=== PATIENT | female | born 1975 | race Caucasian/White ===

== ENCOUNTER 2022-08-11 09:10 | Outpatient (CLI) | payer OTHER, SELFPAY ==
--- NOTE | ~2022-08-11 | US_ITS ---
EXAMINATION: US_VDOPREFBI_US DATE: 08/11/2022 10:29 INDICATION: Localized edema. TECHNIQUE: Grayscale ultrasound images without and with compression and Doppler ultrasound images of the bilateral lower extremity veins were obtained. COMPARISON: Ultrasound 07/14/2017 FINDINGS: The visualized portions of right common femoral vein, profunda (deep) femoral vein, femoral vein, pop liteal vein, peroneal veins, posterior tibial veins, and greater saphenous vein outflow are patent. R ight greater saphenous vein measures 7 mm in the upper thigh, 2 mm in the lower thigh, and 2 mm in th e calf. Reflux in right greater saphenous vein measures 1.0 seconds in the upper thigh, 5 seconds in the lower thigh, and 5 seconds in the calf. Right small saphenous vein measures 5 mm in the upper lurdes f and 2 mm in the lower calf without reflux. The visualized portions of left common femoral vein, profunda femoral vein, femoral vein, popliteal v ein, peroneal veins, posterior tibial veins, and greater saphenous vein outflow are patent. Left grea ter saphenous vein measures 3 mm the upper thigh without reflux. Left greater saphenous vein measures 2 mm in the lower thigh with 1.4 seconds reflux and 2 mm in the calf. Left small saphenous vein caitie ures 2 mm in the upper calf and lower calf without reflux. IMPRESSION: 1. No deep venous thrombosis. 2. Reflux in the bilateral greater saphenous veins. Reviewed, dictated and finalized at location A.
== END 2022-08-11 09:11 | disposition home or self-care (01) ==
PROVIDERS: PCP Family Medicine; Visit Provider Physician Assistant
DX: R60.0 Localized edema (principal); R09.89 Other specified symptoms and signs involving the circulatory and respiratory systems
CPT/HCPCS: 93970

== ENCOUNTER 2023-09-29 10:31 | Emergency (ER) | payer OTHER, SELFPAY ==
--- NOTE | ~2023-09-29 | US_ITS ---
LEFT LOWER EXTREMITY VENOUS ULTRASOUND Ordering provider: Shawn Yusuf APRN History: . left leg pain/swelling, hx of DVT . Comparison: July 15, 19992017 FINDINGS: --COMMON FEMORAL: Patent and free of thrombus. Normal compressibility, phasic flow and augmentation. --PROXIMAL SUPERFICIAL FEMORAL: Patent and free of thrombus. Normal compressibility, phasic flow and augmentation. --DISTAL SUPERFICIAL FEMORAL: Patent and free of thrombus. Normal compressibility, phasic flow and au gmentation. --POPLITEAL: Patent and free of thrombus. Normal compressibility, phasic flow and augmentation. --POSTERIOR TIBIAL: Patent and free of thrombus. Normal compressibility, phasic flow and augmentation . IMPRESSION: Negative left lower extremity venous US. No deep vein thrombosis. Reviewed, dictated and finalized at location A.
[2023-09-29 10:50] VITALS: BP 152/96; PULSE 67; RESP 17; TEMP 36.6; O2SAT 100
--- NOTE | 2023-09-29 10:55 | ED.LOWEXIN ---
HPI - Extremity Injury (Lower) General Chief Complaint: Extremity Problem,Nontraumatic Stated Complaint: DVT? Time Seen by Provider: 09/29/23 10:53 History of Present Illness HPI Narrative: 48-year-old female with a remote history of DVTs presents to the emergency room for evaluation of left calf pain and swelling. Patient states that she was recently on a 5 hour flight prior to the onset of symptoms. Patient states pain is worse with ambulation, has noticed swelling in her foot. Denies any shortness of breath or difficulty breathing. Related Data Home Medications Medication Instructions Recorded Confirmed omeprazole 20 mg tablet,delayed 20 mg PO DAILY 05/04/19 09/07/23 release cetirizine 10 mg tablet 10 mg PO DAILY 03/01/20 09/07/23 cyanocobalamin (vitamin B-12) 1,000 mcg PO DAILY 09/01/22 09/07/23 1,000 mcg capsule omega-3 fatty acids 300 mg capsule 1,500 mg PO DAILY 09/01/22 09/07/23 ferrous sulfate 325 mg (65 mg 325 mg PO DAILY 11/26/22 09/07/23 iron) tablet (Feosol) Allergies Allergy/AdvReac Type Severity Reaction Status Date / Time tetracycline AdvReac Unknown HEARTBURN Verified 09/07/23 09:15 Review of Systems Review of Systems: ROS unremarkable except for noted in HPI PMFSH Past Medical History Medical History Anemia Anxiety Depression DVT (deep venous thrombosis) Encounter for IUD insertion 10/10/10 Mirena insertion Encounter for IUD removal 12/30/10 Mirena removal GERD (gastroesophageal reflux disease) HH (hiatus hernia) High cholesterol Hives Idiopathic urticaria Irritable bowel syndrome with diarrhea Mood swings Normal colonoscopy Screening mammogram, encounter for Surgical History Surgical History History of abdominoplasty (~2012) History of bilateral salpingectomy (09/05/20) hscope endometrial ablation/b lscope salping History of breast augmentation (~2012) History of 03/05/06 primary c/s--macrosomia 01/18/08 rpt c/s History of dilation and curettage (08/15/20) hscope d&c--benign History of endometrial ablation (09/05/20) hscope endometrial ablation/b lscope salping Family History Family History Father Family history of lymphoma Mother Family history of coronary artery disease Social History Social History Social History: Smoking status: Former smoker Tobacco type: cigarettes Second hand tobacco smoke exposure: No Smoking end date: 04/12/98 Alcohol intake: current Drinks per week: 4 Substance use: never Substance use type: does not use Do You Feel Safe in your Home?: Yes Lack of Transportation: No Lack of Food: Never True Current Housing: I Have Housing Concerned About Future Housing: No Difficulty Paying Gas/Electric Bills: No Difficulty Paying for Meds: No Currently Unemployed: No Education: Decline to Answer Difficulty w/ Childcare or Family Care: No Living arrangements: with family Additional living arrangements comments: Occupation/Education: occupation Additional occupation/education comments: safety technician Gender identity (if verbalized by the patient): Female Sexual Orientation (if Verbalized by the Patient): Straight or Heterosexual Exam Narrative: GENERAL: Well-appearing, well-nourished, no physical limitations, and in no acute distress. HEAD: Normocephalic, atraumatic. EYES: Conjunctivae normal, PERRLA and EOMI. CHEST: Clear to auscultation. No respiratory distress. No wheezes rales or rhonchi. HEART: Regular rate and rhythm. No murmur heard. Normal peripheral pulses. EXTREMITIES: Normal range of motion. +TTP to left calf, + HOmans sign SKIN: Warm, dry, no rash. No noted wounds NEURO: No focal deficits. Alert and oriented x3. MAEW. CN's I
[2023-09-29 11:17] LABS: Basophils Absolute Auto 0.1 K/mm3 (0.0-0.1); Basophils Percent Auto 0.7 % (0.2-1.2); Eosinophils Absolute Auto 0.2 K/mm3 (0-0.3); Eosinophils Percent Auto 2.9 % (0-4.4); Hematocrit 42.1 % (37.0-47.0); Immature Granulocyte Absolute 0.02 K/mm3 (0.00-0.031); Immature Granulocyte Percent A 0.3 % (0-0.5); Mean Corpuscular HGB Conc 33.3 g/dl (32-36); Mean Corpuscular Volume 99.3 fl (80-100); Mean Platelet Volume 10.4 fl (7.4-10.4); Monocytes Absolute Auto 0.4 K/mm3 (0.1-0.6); Monocytes Percent Auto 5.9 % (2.6-8.5); Neutrophils Absolute Auto 4.9 K/mm3 (1.3-6.7); Neutrophils Percent Auto 71.2 % (45.5-73.1); Platelet Count Result 184 k/mm3 (150-375); Red Blood Count 4.24 M/mm3 (4.2-5.4); Red Cell Distribution Width 11.9 % (11.5-14.5); White Blood Count 6.8 K/mm3 (4.5-10.0)
[2023-09-29 11:27] LABS: Alanine Aminotransferase 25 U/L (6-35); Albumin Level 4.6 g/dL (3.5-5.1); Alkaline Phosphatase 49 U/L (38-126); Anion Gap 6 mmol/L (4-12); Aspartate Amino Transferase 196 U/L (14-36); Bilirubin,Total 0.7 mg/dL (0.2-1.3); Blood Urea Nitrogen 9 mg/dL (7-17); Carbon Dioxide 26 mmol/L (22-30); Chloride 106 mmol/L (98-107); Estimated CRCL calculation 92 ml/min; Estimated Glomerular Filt Rate > 60; Glucose 88 mg/dL (65-110); Potassium 4.4 mmol/L (3.4-5.0); Sodium 138 mmol/L (137-145)
[2023-09-29 11:31] LABS: INR 0.9; Prothrombin Time 12.9 Seconds (11.1-14.7)
[2023-09-29 11:33] LABS: Partial Thromboplastin Time 27.4 Seconds (22.3-36.8)
[2023-09-29 11:45] LABS: D Dimer 0.33 ug/mL (<0.48)
[2023-09-29 12:27] VITALS: BP 142/81; PULSE 75; RESP 20; O2SAT 97
== END 2023-09-29 12:28 | disposition home or self-care (01) ==
PROVIDERS: Emergency Provider Nurse Practitioner Family; PCP Family Medicine
DX: M79.662 Pain in left lower leg (principal); E78.00 Pure hypercholesterolemia, unspecified; K21.9 Gastro-esophageal reflux disease without esophagitis; K44.9 Diaphragmatic hernia without obstruction or gangrene; K58.0 Irritable bowel syndrome with diarrhea; Z86.718 Personal history of other venous thrombosis and embolism; Z86.2 Personal history of diseases of the blood and blood-forming organs and certain disorders involving the immune mechanism; Z87.891 Personal history of nicotine dependence; Z90.79 Acquired absence of other genital organ(s); Z79.899 Other long term (current) drug therapy
CPT/HCPCS: 36415; 80053; 85025; 85380; 85610; 85730; 93971; 99284

== ENCOUNTER 2024-05-22 12:19 | Outpatient (CLI) | payer BC, SELFPAY ==
--- OUTSIDE RECORDS SUMMARY | 2024-05-22 12:37 | XMS_ITS | Referral Summary ---
Author Organization [facility] Address [address] [place] [address] [place] [address] Care Team Providers Care Tree Inspector Name Role Phone Leisa Bowling MD Primary Care Provider Encounters Date Type Department Care Team Description 05/08/2024 12:00 PM MONITOR TECH Office Visit [facility] [address] [place] [address] [address] [place] [address] Jyoti Carr Encounter for cosmetic procedure (Primary Dx) 04/18/2024 Orders Only [facility] [address] [place] [address] Unknown, Notinfile 04/07/2024 1:00 PM MONITOR TECH Office Visit [facility] [address] [place] [address] [address] [place] [address] Jyoti Carr Encounter for cosmetic procedure (Primary Dx) 03/13/2024 11:30 AM MONITOR TECH Lab [facility] [address] [address] 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 10:40 AM MONITOR TECH Office Visit [facility] [address] [place] [phone] Marquise Ogden MD PhD Hypergammaglobulinemia (Primary Dx); Chronic idiopathic urticaria 03/08/2024 Orders Only [facility] [address] [facility] [address] [place] [address] Marquise Ogden MD PhD Chronic idiopathic urticaria (Primary Dx) 03/07/2024 11:45 AM MONITOR TECH Office Visit [facility] [address] [facility] [address] [place] [address] Jyoti Carr Encounter for cosmetic procedure (Primary Dx) from Last 3 Months Allergies Active Allergy Reactions Criticality Noted Date Comments Tetracyclines Medications omeprazole 20 mg tablet,delayed release (DR/EC) Take 1 tablet (20 mg total) by mouth daily Active ferrous gluconate 324 mg (37.5 mg of elemental iron) tablet 07/23/2017 Active cetirizine (ZyrTEC) 10 mg tablet Take 1 tablet (10 mg total) by mouth as needed Active Viberzi 100 mg tablet Take 1 tablet (100 mg total) by mouth 2 (two) times a day 03/09/2023 Active montelukast (SINGULAIR) 10 mg tabletIndication s:Chronic idiopathic urticaria TAKE 1 TABLET(10 MG) BY MOUTH DAILY 30 tablet 04/10/2024 Active Active Problems Problem Noted Date Diagnosed Date Facial aging 01/12/2018 Sensorineural hearing loss (SNHL) of both ears 0 12/05/2014 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 Patellofemoral pain syndrome 05/20/2011 Social History Tobacco Use Types Packs/Day Years Used Date Smoking Tobacco: Never Smokeless Tobacco: Never Tobacco Cessation:Counseling Given: Not Answered Comments Unknown Sex and Gender Information Value Date Recorded Sex Assigned at Not on file Legal Sex Female 3:11 AM MONITOR TECH Gender Identity Not on file Sexual Orientation Not on file Last Filed Vital Signs Vital Sign Reading Time Taken Comments Blood Pressure 139/82 03/13/2024 10:41 AM MONITOR TECH Pulse 66 03/13/2024 10:41 AM MONITOR TECH Temperature 36.3 C (97.3 F) 03/13/2024 10:41 AM MONITOR TECH Respiratory Rate 19 03/13/2024 10:41 AM MONITOR TECH Oxygen Saturation 99% 03/13/2024 10:41 AM MONITOR TECH Inhaled Oxygen Concentration - - Weight 85.7 kg (189 lb) 03/13/2024 10:41 AM MONITOR TECH Height 162.6 cm (5' 4 ) 03/13/2024 10:41 AM MONITOR TECH Body Mass Index 32.44 03/13/2024 10:41 AM MONITOR TECH Plan of Treatment Not on file Procedures Procedure Name Priority Date/Time Associated Diagnosis Comments SURGICAL PATHOLOGY Routine 04/18/2024 12 :00 AM MONITOR TECH IGA Routine 03/13/2024 11:32 AM MONITOR TECH Hypergammaglobuline serge IGM Routine 03/13/2024 11:32 AM MONITOR TECH Hypergammaglobuline serge IGG Routine 03/13/2024 11:32 AM MONITOR TECH Hypergammaglobuline serge SCREENING MAMMOGRAM Routine 10/31/2012 2 :12 PM CDT from Last 3 Months or Most Recently Relevant to Health Maintenance Results * Surgical pathology (04/18/2024 12:00 AM MONITOR TECH) Skin, shave biopsy 04/18/2024 04/21/2024 7:43 AM MONITOR TECH Narrative 04/24/2024 1:50 PM MONITOR TECH EPIC results best viewed via link to PDF [facility] [address] [place] [address], [address], [place] [address] [email or web address] Note to Patients: This report may contain a detailed description of human tissue sent by a health care provider to the laboratory for pathologic evaluation. The content of this report is essential for diagnosis and may provide important critical findings. This information may be unfamiliar to patients to review without a medical professional present. It is advised that the patient review this report in the presence of a health care provider who can answer questions and explain the details. FINAL REPORT Patient Information: PATIENT NAME: SHAUNA STEWART SEX: F : 1975 (Age: 48) Specimen Information: COLLECTED: 04/18/2024 RECEIVED: 04/21/2024 REPORTED: 04/24/2024 Submitting Physician Information: Ana Maria Au, [facility], [address] [place] [address], DERMATOPATHOLOGY REPORT RESULTS DIAGNOSIS: A. SKIN, RIGHT LATERAL ZYGOMA, SHAVE BIOPSY: SEBORRHEIC KERATOSIS, INFLAMED B. SKIN, LEFT CENTRAL ISLAM, SHAVE BIOPSY: SEBORRHEIC KERATOSIS exr/lac By this signature, I attest that the above diagnosis is based upon my personal examination of the slides(and/or other material indicated in the diagnosis). Shana Peña M.D. Report Electronically Reviewed and Signed Out By Shana Peña M.D. 04/24/2024 13:50:04 CLINICAL INFORMATION A-B. NEOPLASM OF UNCERTAIN BEHAVIOR VS. SKI VS. DERMAL NEVUS SPECIMEN DATA MICROSCOPIC DESCRIPTION: A. There is hyperkeratosis, papillated and reticulated epithelial hyperplasia, horn pseudocysts and an inflammatory cell infiltrate. (L82.0) B. There is hyperkeratosis, papillated and reticulated epithelial hyperplasia and horn pseudocysts. (L82.1) GROSS DESCRIPTION: A. Received in a formalin-containing bottle is a superficial fragment of pale subramanian, mildly bosselated and hair-bearing skin measuring 0.6 by 0.5 by 0.1 cm. The surgical margin is inked blue. The specimen is sectioned into 2 pieces and submitted entirely in a single cassette. Due to shrinkage, measurements may be different than those at time of procedure. B. Received in a formalin-containing bottle is a superficial fragment of pale subramanian, mildly domed and semi-translucent skin measuring 0.7 by 0.6 by 0.1 cm. The surgical margin is inked blue. The specimen is sectioned into 2 pieces and submitted entirely in a single cassette. Due to shrinkage, measurements may be different than those at time of procedure. exr/anc ICD-9 ZSD.1411 Clerical Data A; 02256 B; 66627 The characteristics of special, immunohistochemical, and immunofluorescence stains and in-situ hybridization tests performed by the [facility] were deemed acceptable in ongoing personnel quality assurance auditor measures and in compliance with regulations drawn from the Clinical Laboratory Improvement Act rm5685 (CLIA '88). Control reactions for all stains performed were deemed adequate and appropriate by a pathologist prior to evaluation of patient tissue. Some diagnoses were rendered with the assistance of laboratory-developed tests utilizing analyte-specific reagents; the performance characteristic of these tests were determined by [facility] and are not cleared or approved by the [place] Food an Drug administration. Laboratory developed test may only be performed in a facility that is certified by the [facility] as a high-complexity laboratory under CLIA '88. These tests are used for clinical purposes and are not investigational. Notinfile Unknown LAB PATHOLOGY ORDERABLES Final Result * IgA (03/13/2024 11:32 AM MONITOR TECH) Immunoglobulin A 179 70 - 400 mg/dL Blood 03/13/2024 11:3 2 AM MONITOR TECH 03/13/2024 2:55 PM MONITOR TECH Narrative [facility] 03/13/2024 3:37 PM MONITOR TECH Send to [facility] lab for more sensitive test (lower limit of detection) Marquise Ni MD PhD LAB BLOOD ORDERABLE S Final Result [facility] [place] [address] * (ABNORMAL) IgM (03/13/2024 11:32 AM MONITOR TECH) Immunoglobulin M 313(H) 40 - 230 mg/dL Blood 03/13/2024 11:3 2 AM MONITOR TECH 03/13/2024 2:55 PM MONITOR TECH Marquise Ni MD PhD LAB BLOOD ORDERABLE S Final Result [facility] Department [place] [address] * IgG (03/13/2024 11:32 AM MONITOR TECH) Immunoglobulin G 1,078 700 - 1,600 mg/dL Blood 03/13/2024 11:3 2 AM MONITOR TECH 03/13/2024 2:55 PM MONITOR TECH Marquise Ni MD PhD LAB BLOOD ORDERABLE S Final Result [facility] [place] [address] * Screening Mammogram (10/31/2012 2:12 PM CDT) Anatomical Region Laterality Modality Breast N/A Mammography 10/31/2012 2:12 PM CDT Narrative 11/02/2012 5:08 PM CDT STUART GOOD MD, PHD FINAL REPORT ACC# Date Time Exam [id number] Oct 31, 2012 14:12:00 WMM [id number] Screening Mamm Bilat 2v Technologist(s): Sultana Herr; ; EXAMINATION: Mammogram Findings: A Full-Field Digital Screening Mammogram was performed. Views obtained: bilateral craniocaudal; bilateral mediolateral oblique. Computer Aided Detection was performed with PingThings.3 version 9.3. This is a baseline study. There are scattered fibroglandular densities. There is no suspicious abnormality in either breast. IMPRESSION: Annual screening mammography is recommended. OVERALL FINAL ASSESSMENT: BI-RADS CATEGORY 1: Negative. Requested By: GLENNA MYERS M.D. Dictated By: STUART GOOD MD, PHD on Nov 02 2012 5:08P This document has been electronically signed by: STUART GOOD MD, PHD on Nov 02 2012 5:08P Procedure Note Provider, MD Xu - 08/08/2016 STUART GOOD MD, PHD FINAL REPORT ACC# Date Time Exam [id number] Oct 31, 2012 14:12:00 WMM [id number] Screening Mamm Bilat 2v Technologist(s): Sultana Herr; ; EXAMINATION: Mammogram Findings: A Full-Field Digital Screening Mammogram was performed. Views obtained: bilateral craniocaudal; bilateral mediolateral oblique. Computer Aided Detection was performed with PingThings.3 version 9.3. This is a baseline study. There are scattered fibroglandular densities. There is no suspicious abnormality in either breast. IMPRESSION: Annual screening mammography is recommended. OVERALL FINAL ASSESSMENT: BI-RADS CATEGORY 1: Negative. Requested By: GLENNA MYERS M.D. Dictated By: STUART GOOD MD, PHD on Nov 02 2012 5:08P This document has been electronically signed by: STUART GOOD MD, PHD on Nov 02 2012 5:08P Historical Provider IMMarielle MAMMO PROCEDURES Citlalli l Result from Last 3 Months or Most Recently Relevant to Health Maintenance Insurance [facility] HMO/PPO Address: [facility] [id number] [place] [id number] [facility] HMO Care Teams Tree Inspector Relationship Specialty Start Date End Date Leisa Bowling MD [address] [facility] [address] [place] [address] PCP - General 03/18/17
--- OUTSIDE RECORDS SUMMARY | 2024-05-22 12:37 | XMS_ITS | Continuity of Care Document ---
Author Organization [facility] Address [address] [place] [address] Phone Care Team Providers Care Train Clerk Name Role Phone Jahaira Oliver Unavailable Unavailable Allergies, Adverse Reactions, Alerts Substance Reaction Status Criticality tetracycline GI Active No Information Medications Medication Instructions Dosage Effective Dates (start - stop) Status Comments ZITHROMAX TAB 250 MG Z-KIERAN 250 1 DIRECTE - No Longer Active CEPHALEXIN 500MG CAP(S) 1 TID - No Longer Active Advance Directives Directive Yes / No Effective Date File Name No Information Encounters Encounter Description Practice Location Reason(s) For Visit Diagnoses Date Provider Providers Copied on Encounter [facility], [address], [place], [place], [id number], tel:[phone] [facility] No Information Edwina Campo. [address], [id number], [place]. tel:[phone] [employer], [address], [place], [place], [id number], tel:[phone] [facility] AC SUPP OTITIS MEDIA NOS Edwina Campo. [address], [place] [address], [place], [place], [id number], [place]. tel:[phone] [facility], [address], [place], [place], [id number], tel:[phone] [facility] OT [facility] FINDING BLOOD Joe Sotelo. [address] [place] [address], [place], [place], [id number], [place]. tel:[phone] [employer], [address], [place], [place], [id number], tel:[phone] [facility] ALLERGIC URTICARIA Joe Sotelo. [address], [address], [place], [place], [id number], . tel:[phone] [facility], [address], [place], [place], [id number], tel:[phone] [facility] SCREENING-PUL MONARY TB Joe Pena [address], [address], [place], [place], [id number], . tel:[phone] [facility], [address], [place], [place], [id number], tel:[phone] [facility] ACUTE SINUSITIS NOS Joe Pena [address], [address], [place], [place], [id number], . tel:[phone] [facility] [employer], [address], [place], [place], [id number], tel:[phone] [facility] OTHER DYSCHROMIA Joe Pena [address], [address], [place], [place], [id number], . tel:[phone] Family History Family Member Type Diagnosis Age At Onset No Information Payers Payer name Insurance type Covered alliance party ID Authoriza tion(s) No Information Social History Type Description Quantity Date Captured Comments Sex Female Smoking Status No Information Chief Complaint And Reason For Visit No Information Reason For Referral Reason For Referral No Information History Of Present Illness Encounter Date Complaint History Of Prese nt Illness No Information Functional Status Date Functional Assessmen t No Information Instructions Date Instruction Additional Infor mation No Information Assessments Type Assessment Date No Information Patient Care Teams Name Effective Dates (start - stop) Status Members No Information
--- OUTSIDE RECORDS SUMMARY | 2024-05-22 12:37 | XMS_ITS | Clinical Summary ---
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 Encounters Date Type Department Care Team Description 05/08/2024 12:00 PM INTEGRATION AIDE Office Visit [facility] Surgery [facility] [address] [place] [phone] Jyoti Carr Encounter for cosmetic procedure (Primary Dx) 04/18/2024 Orders Only [facility] [address] [place] [address] Unknown, Notinfile 04/07/2024 1:00 PM INTEGRATION AIDE Office Visit [facility] Surgery [address] [place] [address] [address] [place] [phone] Jyoti Carr Encounter for cosmetic procedure (Primary Dx) 03/13/2024 11:30 AM INTEGRATION AIDE Lab [facility] at the [address] [phone] 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 10:40 AM INTEGRATION AIDE Office Visit [facility] Allergy and Immunology [address] [place] [phone] Marquise Ogden MD PhD Hypergammaglobulinemia (Primary Dx); Chronic idiopathic urticaria 03/08/2024 Orders Only [facility] Allergy and Immunology [address] [place] [phone] Marquise Ogden MD PhD Chronic idiopathic urticaria (Primary Dx) 03/07/2024 11:45 AM INTEGRATION AIDE Office Visit [facility] Surgery [address] [place] [address] [address] [place] [phone] Jyoti Carr Encounter for cosmetic procedure (Primary Dx) from Last 3 Months Family History Medical History Relation Name Comments Cancer Father Family history of malignant neoplasm - (Added by TW Conv) Relation Name Status Comments Father Social History Tobacco Use Types Packs/Day Years Used Date Smoking Tobacco: Never Smokeless Tobacco: Never Tobacco Cessation:Counseling Given: Not Answered Comments Unknown Sex and Gender Information Value Date Recorded Sex Assigned at Not on file Legal Sex Female 3:11 AM INTEGRATION AIDE Gender Identity Not on file Sexual Orientation Not on file Obstetrics History Last Filed Vital Signs Vital Sign Reading Time Taken Comments Blood Pressure 139/82 03/13/2024 10:41 AM INTEGRATION AIDE Pulse 66 03/13/2024 10:41 AM INTEGRATION AIDE Temperature 36.3 C (97.3 F) 03/13/2024 10:41 AM INTEGRATION AIDE Respiratory Rate 19 03/13/2024 10:41 AM INTEGRATION AIDE Oxygen Saturation 99% 03/13/2024 10:41 AM INTEGRATION AIDE Inhaled Oxygen Concentration - - Weight 85.7 kg (189 lb) 03/13/2024 10:41 AM INTEGRATION AIDE Height 162.6 cm (5' 4 ) 03/13/2024 10:41 AM INTEGRATION AIDE Body Mass Index 32.44 03/13/2024 10:41 AM INTEGRATION AIDE Plan of Treatment Health Maintenance Due Date Last Done Comments Cervical Cancer Screening 1977 Colon Cancer Screening-Colonoscopy 1977 Depression Screening 1977 Hepatitis C Screening 1977 DTaP/Tdap/Td Vaccine (1 - Tdap) 1988 Hepatitis B Screening 07/21/1995 Regular Well Visit/Exam 18-64 07/21/1995 Breast Cancer Screening-Mammogram 10/31/2013 013 Influenza Vaccine (#1) 2023 03/02/2020 HPV Vaccines Aged Out No longer eligi ble based on patient's age to complete this topic Pneumococcal vaccine <65 Aged Out No longer eligible based on patient's age to complete this topic Procedures Procedure Name Priority Date/Time Associated Diagnosis Comments SURGICAL PATHOLOGY Routine 04/18/2024 12 :00 AM INTEGRATION AIDE IGA Routine 03/13/2024 11:32 AM INTEGRATION AIDE Hypergammaglobuline serge IGM Routine 03/13/2024 11:32 AM INTEGRATION AIDE Hypergammaglobuline serge IGG Routine 03/13/2024 11:32 AM INTEGRATION AIDE Hypergammaglobuline serge SCREENING MAMMOGRAM Routine 10/31/2012 2 :12 PM CDT from Last 3 Months or Most Recently Relevant to Health Maintenance Results * Surgical pathology (04/18/2024 12:00 AM INTEGRATION AIDE) Skin, shave biopsy 04/18/2024 04/21/2024 7:43 AM INTEGRATION AIDE Narrative 04/24/2024 1:50 PM INTEGRATION AIDE EPIC results best viewed via link to PDF [facility] [address] [place] [address]., [address], [place] [address] [email or web address] Note to Patients: This report may contain [...] 04/24/2024 Submitting Physician Information: Ana Maria Au, [facility] Skin Care [facility], [address] [place] [address], DERMATOPATHOLOGY REPORT RESULTS DIAGNOSIS: A. SKIN, RIGHT LATERAL ZYGOMA, SHAVE BIOPSY: SEBORRHEIC KERATOSIS, INFLAMED B. SKIN, LEFT CENTRAL MOSQUE, SHAVE BIOPSY: SEBORRHEIC KERATOSIS exr/lac By this [...] procedure. exr/anc ICD-9 ZSD.1411 Clerical Data A; 32614 B; 76737 The characteristics of special, immunohistochemical, and immunofluorescence stains and in-situ hybridization tests performed by the [facility] were deemed acceptable in ongoing quality and reliability engineer measures and in compliance with regulations drawn from the Clinical Laboratory Improvement Act nc2067 (CLIA '88). Control reactions for all stains performed were deemed adequate and appropriate by a pathologist prior to evaluation of patient tissue. Some diagnoses were rendered with the assistance of laboratory-developed tests utilizing analyte-specific reagents; the performance characteristic of these tests were determined by [facility] and are not cleared or approved by the [place] Food an Drug administration. Laboratory developed test may only be performed in a facility that is certified by the [facility] as a high-complexity laboratory under CLIA '88. These tests are used for clinical purposes and are not investigational. us Notinfile Unknown LAB PATHOLOGY ORDERABLES Final Result * IgA (03/13/2024 11:32 AM INTEGRATION AIDE) Immunoglobulin A 179 70 - 400 mg/dL Blood 03/13/2024 11:3 2 AM INTEGRATION AIDE 03/13/2024 2:55 PM INTEGRATION AIDE Narrative [facility] - 03/13/2024 3:37 PM INTEGRATION AIDE Send to [facility] lab for more sensitive test (lower limit of detection) us Marquise Ni MD PhD LAB BLOOD ORDERABLE S Final Result [facility] Department [place] [address] * (ABNORMAL) IgM (03/13/2024 11:32 AM INTEGRATION AIDE) Immunoglobulin M 313(H) 40 - 230 mg/dL Blood 03/13/2024 11:3 2 AM INTEGRATION AIDE 03/13/2024 2:55 PM INTEGRATION AIDE Marquise Ni MD PhD LAB BLOOD ORDERABLE S Final Result Performing Organization Address [facility] de Phone Number [facility] [place] [address] * IgG (03/13/2024 11:32 AM INTEGRATION AIDE) Immunoglobulin G 1,078 700 - 1,600 mg/dL Blood 03/13/2024 11:3 2 AM INTEGRATION AIDE 03/13/2024 2:55 PM INTEGRATION AIDE Marquise Ni MD PhD LAB BLOOD ORDERABLE S Final Result Performing Organization Address [facility] de Phone Number [facility] [place] [address] * Screening Mammogram (10/31/2012 2:12 PM CDT) Anatomical Region Laterality Modality Breast N/A Mammography 10/31/2012 2:12 PM CDT Narrative 11/02/2012 5:08 PM CDT STUART GOOD MD, PHD FINAL REPORT ACC# Date Time Exam [id number] Oct 31, 2012 14:12:00 [facility] [address] Screening Mamm Bilat 2v Technologist(s): Sultana Herr; ; EXAMINATION: Mammogram Findings: A Full-Field Digital Screening Mammogram was performed. Views obtained: bilateral craniocaudal; bilateral mediolateral oblique. Computer Aided Detection was performed with ilab.3 version 9.3. This is a baseline study. [...] PHD FINAL REPORT ACC# Date Time Exam [id number] Oct 31, 2012 14:12:00 [facility] [id number] Screening Mamm Bilat 2v Technologist(s): Sultana Herr; ; EXAMINATION: Mammogram Findings: A Full-Field Digital Screening Mammogram was performed. Views obtained: bilateral craniocaudal; bilateral mediolateral oblique. Computer Aided Detection was performed with ilab.3 version 9.3. This is a baseline study. There are scattered fibroglandular densities. There is no suspicious abnormality in either breast. IMPRESSION: Annual screening mammography is recommended. OVERALL FINAL ASSESSMENT: BI-RADS CATEGORY 1: Negative. Requested By: GLENNA MYERS M.D. Dictated By: STUART GOOD MD, PHD on Nov 02 2012 5:08P This document has been electronically signed by: STUART GODO MD, PHD on Nov 02 2012 5:08P Historical Provider IMG MAMMO PROCEDURES Citlalli l Result from Last 3 Months or Most Recently Relevant to Health Maintenance Insurance [facility] Care Teams Nurse Case Management Relationship Specialty Start Date End Date Leisa Bowling MD [address] [facility] [address] [place] [address] PCP - General 03/18/17
[2024-05-22 13:15] LABS: Influenza A QL RT-PCR Negative (Negative); Influenza B QL RT-PCR Negative (Negative); RSV RNA, RT-PCR Negative (Negative); SARS-CoV-2 RNA PCR Negative (Negative)
== END 2024-05-22 12:20 | disposition home or self-care (01) ==
LOC: ANHLAB 12:21
PROVIDERS: PCP Family Medicine; Visit Provider Student in an Organized Health Care Education/Training Program
DX: U07.1 COVID-19 (principal); Z20.822 Contact with and (suspected) exposure to COVID-19
CPT/HCPCS: 87637